=== PATIENT | male | born 1980 | race Caucasian/White ===

== ENCOUNTER 2021-03-09 13:55 | Emergency (ER) | payer OTHER, SELFPAY ==
--- NOTE | ~2021-03-09 | XR_ITS ---
EXAMINATION: XR ankle RT min 3V DATE: 03/09/2021 14:19 INDICATION: Right ankle pain post fall TECHNIQUE: Anteroposterior, oblique, mortise, and lateral views of the right ankle were obtained. COMPARISON: None. FINDINGS: Alignment is normal. No fracture. Joint spaces are well maintained. No ankle joint effusion. Mild s oft tissue swelling along about the lateral malleolus. IMPRESSION: 1. No osseous abnormality. Reviewed, dictated and finalized at location A. IMPRESSION: 1. No osseous abnormality.
[2021-03-09 13:56] VITALS: BP 119/62; PULSE 102; RESP 18; TEMP 37; O2SAT 95
--- NOTE | 2021-03-09 14:20 | ED.LOWEXIN ---
HPI - Extremity Injury (Lower) General Chief Complaint: Extremity Injury, Lower Stated Complaint: right ankle injury Time Seen by Provider: 03/09/21 14:09 Source: patient Mode of arrival: ambulatory Limitations: no limitations History of Present Illness HPI Narrative: Patient is a 41-year-old male complaining of right ankle pain, 6 out of 10, dull, aching, worse with movement after he tripped and fell, ground-level fall, and twisted his ankle last night. Denies any head, neck, back, pelvis, hip or any other extremity pain/injury. Related Data Home Medications Medication Instructions Recorded Confirmed No Home Medications 03/09/21 03/09/21 Allergies Allergy/AdvReac Type Severity Reaction Status Date / Time No Known Allergies Allergy Verified 03/09/21 14:02 Review of Systems Review of Systems: All systems reviewed & are unremarkable except as noted in HPI and below PMFSH Social History Social History Smoking status: Smoker, status unknown Smoking end date: 07/12/15 Alcohol intake: current Comments Past medical history: None Family history: None Social history: Non-smoker no EtOH or drug use Exam Const: General: no acute distress and alert Orientation/consciousness: patient oriented x3 HENMT: Head: normal to inspection Eyes: Conjunctivae: conjunctivae normal EOM: EOMs intact bilaterally Neck: Neck: normal visual inspection Resp: Effort & Inspection: normal respiratory effort Skin: General skin exam: normal color Neuro: General: moves all extremities Extrem: Other: Negative for deformity. Right ankle swelling, pain on range of motion, pain on palpation, neurovascular is intact Course Vital Signs Vital signs: Vital Signs Temperature 37.0 C 03/09/21 13:56 Pulse Rate 102 H 03/09/21 13:56 Respiratory Rate 18 03/09/21 13:56 Blood Pressure 119/62 03/09/21 13:56 Pulse Oximetry 95 03/09/21 13:56 Temperature 37.0 C 03/09/21 13:56 Pulse Rate 102 H 03/09/21 13:56 Respiratory Rate 18 03/09/21 13:56 Blood Pressure 119/62 03/09/21 13:56 Pulse Oximetry 95 03/09/21 13:56 MDM - Extremity Injury (Lower) MDM Narrative Medical decision making narrative: Ankle x-ray negative for fracture or dislocation Differential Diagnosis Differential diagnosis: Likely ankle sprain and strain and ankle fracture Discharge Plan Discharge Clinical Impression: Ankle sprain and strain Patient Disposition: Home, Self-Care Condition: Improved Instructions: Ankle Sprain (ED) Prescriptions: No Action No Home Medications RF: 0 Follow-up/Referrals: Rolly Cristina MD [Primary Care Provider] - 03/10/21 Time of Disposition: 15:00
[2021-03-09] MEDS: KETOROLAC 30 MG/ML VIAL (*BKC) IM (15:10)
[2021-03-09 15:25] VITALS: BP 122/77; PULSE 84; RESP 18; O2SAT 99
[2021-03-09 15:40] VITALS: TEMP 37
== END 2021-03-09 15:41 | disposition home or self-care (01) ==
PROVIDERS: Emergency Provider Emergency Medicine; PCP Emergency Medicine
DX: S93.401A Sprain of unspecified ligament of right ankle, initial encounter (principal); S96.911A Strain of unspecified muscle and tendon at ankle and foot level, right foot, initial encounter; W01.0XXA Fall on same level from slipping, tripping and stumbling without subsequent striking against object, initial encounter
CPT/HCPCS: 73610; 96372; 99283; J1885

== ENCOUNTER 2023-01-26 14:59 | Emergency (ER) | payer BC, SELFPAY ==
[2023-01-26 15:12] VITALS: BP 139/73; PULSE 83; RESP 16; TEMP 37; O2SAT 99
--- NOTE | 2023-01-26 15:28 | ED.URI ---
HPI - URI/Sore Throat General Chief Complaint: Upper Respiratory Infection Stated Complaint: sore throat, both eyes irritated Time Seen by Provider: 01/26/23 15:07 Source: patient Mode of arrival: ambulatory Limitations: no limitations History of Present Illness HPI Narrative: Mr. Casper is a 42-year-old male patient presenting to the clinic today with complaints of a sore throat and bilateral eye inflammation. He reports that he thinks he has pinkeye. He reports his sore throat just started on Wednesday. He also has some nasal congestion. The right eye started itching with some yellow drainage and now it has moved to the left eye. He has been instilling neomycin dexamethasone eye drops in his eyes. No known fever, chills, chest pain, or shortness of breath. Denies any known exposure to anyone with COVID, flu, or strep. MD elicited complaint: sore throat and nasal congestion Related Data Home Medications Medication Instructions Recorded Confirmed No Home Medications 03/09/21 01/26/23 Allergies Allergy/AdvReac Type Severity Reaction Status Date / Time No Known Allergies Allergy Verified 01/26/23 15:14 Review of Systems Review of Systems: Pertinent positives per HPI. Patient denies any fever, chills, rash, headache, visual changes, dizziness, cough, shortness of breath, chest pain, palpitations, nausea, vomiting, diarrhea, constipation, abdominal pain, or any urinary issues. PMFSH Social History Social History Smoking status: Smoker, status unknown Smoking end date: 07/12/15 Alcohol intake: current Comments At the time of my signature, I reviewed and agree with the nursing past medical, surgical, social, and family history. There is no relevant family history pertinent to the patient complaint. Exam Narrative: General: Well-developed, well nourished, in no apparent distress Head: Normocephalic, atraumatic Eyes: Pupils equally round and reactive to light bilaterally, EOM intact, bilateral sclera and conjunctive injected, right greater than left, dried yellow discharge noted in the eye lashes, lids normal Ears: TMs intact and clear, ear canals clear, no drainage, grossly hearing normal. Nose: Nares patent, clear nasal discharge, mild inflammation, no sinus tenderness. Mouth: Oral pharynx red without lesions or masses, good dentition, MMM. Neck: Supple, trachea midline, no enlargement of anterior or posterior cervical nodes, no thyroid masses or goiter palpable. Cardio: Regular rate and rhythm, s1 and s2 normal, no murmur appreciated. Resp: Clear to auscultation bilaterally, no rhonchi, rales, wheezing or rubs Course Course Emergency Course: Portions of this record may have been created with voice recognition software. Level of Care: Express Care Visit Vital Signs Vital signs: Vital Signs Temperature 37.0 C 01/26/23 15:12 Pulse Rate 83 01/26/23 15:12 Respiratory Rate 16 01/26/23 15:12 Blood Pressure 139/73 01/26/23 15:12 Pulse Oximetry 99 01/26/23 15:12 Oxygen Delivery Room Air 01/26/23 15:12 Temperature 37.0 C 01/26/23 15:12 Pulse Rate 83 01/26/23 15:12 Respiratory Rate 16 01/26/23 15:12 Blood Pressure 139/73 01/26/23 15:12 Pulse Oximetry 99 01/26/23 15:12 Oxygen Delivery Room Air 01/26/23 15:12 Vital signs reviewed MDM - URI/Sore Throat MDM Narrative Medical decision making narrative: At the time of visit patient is resting comfortably on the exam table. Strep screen was negative in the clinic today. I suspect the patient has viral pharyngitis, viral conjunctivitis, and URI. Supportive measures were discussed with the patient he voiced understanding discharge instructions agrees to treatment plan. We will send strep for culture. Differential Diagnosis Differential diagnosis: Likely upper respiratory infection, otitis media, sinusitis, viral infection, bronchitis, influenza
== END 2023-01-26 15:42 | disposition home or self-care (01) ==
PROVIDERS: Emergency Provider Nurse Practitioner Family; PCP Emergency Medicine
DX: J06.9 Acute upper respiratory infection, unspecified (principal); J02.9 Acute pharyngitis, unspecified; B30.9 Viral conjunctivitis, unspecified; Z87.891 Personal history of nicotine dependence
CPT/HCPCS: 87081; 87880; 99213; G0463

== ENCOUNTER 2023-11-11 00:55 | Day surgery (SDC) | payer BC, SELFPAY ==
[2023-11-01 09:37] VITALS: BMI 28.1
[2023-11-11 09:08] VITALS: BP 118/69; PULSE 87; RESP 18; TEMP 36.6; O2SAT 98
[2023-11-11] MEDS: LACTATED RINGERS 1,000 ML 150 ML IV CONT (09:19)
--- NOTE | 2023-11-11 10:03 | PM.HPGS ---
History of Present Illness History of Present Illness Consent: Risks, benefits, and alternatives have been discussed and questions answered. Patient agrees to proceed with procedure. Chief complaint: hx of other diseases of the digestive system Narrative: River Casper is a 43 year old male here for colonoscopy, had diverticulitis about 7 years ago and polyps Review of Systems Review of Systems: All systems reviewed & are unremarkable except as noted in HPI and below PMFSH Past Medical History Medical History (Updated 11/11/23 @ 10:04 by Shay Amor MD) Colon polyp Surgical History Surgical History (Updated 08/17/23 @ 14:05 by Meryl Noel MA) History of colon surgery Social History Social History (Updated 08/17/23 @ 13:58 by Meryl Noel MA) Smoking packs per day: 1 Smoking cigarettes per day: 20.0 Years smoked: 20 Smoking pack-years: 20.00 Smoking status: Former smoker Smoking end date: 07/12/15 Substance use type: does not use Do You Feel Safe in your Home?: Yes Lack of Transportation: No Lack of Food: Never True Current Housing: I Have Housing Concerned About Future Housing: No Difficulty Paying Gas/Electric Bills: No Difficulty Paying for Meds: No Currently Unemployed: No Education: Associate Degree Difficulty w/ Childcare or Family Care: No Living arrangements: other Additional living arrangements comments: with sp Spiritual care concerns: No Meds Home Medications and Allergies Home Medications Medication Instructions Recorded Confirmed Type No Home Medications 03/09/21 11/01/23 History Allergies Allergy/AdvReac Type Severity Reaction Status Date / Time No Known Allergies Allergy Verified 11/11/23 09:07 Vital Signs Vital Signs - 24 hr 11/11/23 09:08 Temperature 98 F Pulse Rate 87 Respiratory Rate 18 Blood Pressure 118/69 Pulse Oximetry 98 Oxygen Delivery Room Air Exam Const: General: comfortable and no acute distress HENMT: Face/Nose/Sinus: Normal nares present Eyes: General: appearance normal, both eyes and all related structures Neck: Neck: no JVD Resp: Auscultation: clear to auscultation bilaterally Cardio: Rate: regular rate Rhythm: regular rhythm GI: Inspection: non-distended GI Palp: Yes Soft to palpation Skin: General skin exam: normal color Neuro: General: gait normal Speech: normal speech Extrem: General: normal to inspection Psych: Mental Status: mental status grossly normal Assessment and Plan Assessment and plan (1) Colon polyp: Code(s): K63.5 - Polyp of colon Status: Acute Assessment and Plan: colonoscopy
--- NOTE | 2023-11-11 10:04 | WPDANESEPPF ---
Anes - Initial Pre Proc Eval Procedure: Operation Date: 11/11/23 10:30 Proposed Procedures p Screening Colonoscopy - Shay Amor MD Date/Time: 11/11/23 10:04 Surgeon: Shay Amor MD Pre Op Diagnosis: hx of other diseases of the digestive system Patient Data Age: 43 Gender: M Height: 1.75 m Weight: 86.8 kg Last Vital Signs Temp 98 F 11/11/23 09:08 Pulse 87 11/11/23 09:08 Resp 18 11/11/23 09:08 BP 118/69 11/11/23 09:08 Pulse Ox 98 11/11/23 09:08 O2 Del Method Room Air 11/11/23 09:08 Allergies Allergy/AdvReac Type Severity Reaction Status Date / Time No Known Allergies Allergy Verified 11/11/23 09:07 Home Medications Medication Instructions Recorded Confirmed Type No Home Medications 03/09/21 11/01/23 History Patient hx anesthesia problems: none Family hx anesthesia problems: none Results Review: All pre-operative results and documents have been reviewed as part of the pre-operative evaluation. [facility] Past Medical History Medical History (Updated 11/11/23 @ 10:04 by Shay Amor MD) Colon polyp Surgical History Surgical History (Updated 08/17/23 @ 14:05 by Meryl Noel MA) History of colon surgery Social History Social History (Updated 08/17/23 @ 13:58 by Meryl Noel MA) Smoking packs per day: 1 Smoking cigarettes per day: 20.0 Years smoked: 20 Smoking pack-years: 20.00 Smoking status: Former smoker Smoking end date: 07/12/15 Substance use type: does not use Do You Feel Safe in your Home?: Yes Lack of Transportation: No Lack of Food: Never True Current Housing: I Have Housing Concerned About Future Housing: No Difficulty Paying Gas/Electric Bills: No Difficulty Paying for Meds: No Currently Unemployed: No Education: Associate Degree Difficulty w/ Childcare or Family Care: No Living arrangements: other Additional living arrangements comments: with sp Spiritual care concerns: No Anes - Eval Final PreProcedure Day of Procedure 11/11/23 10:04 Patient weight: normal Heart: regular rate and rhythm Lungs: clear to auscultation Airway: Mallampati scale class II Neurological: alert and oriented Last oral intake: >/= 8 hours ASA classification: II Emergent: no Anesthetic plan: proceed Anesthesia type and monitoring: general GIVS and standard monitoring Results Review: All pre-operative results and documents have been reviewed as part of the pre-operative evaluation. Informed Consent: The patient's anesthetic plan and its attendant risks and benefits were discussed with the patient/family/POA. Questions were solicited and answers provided to the satisfaction of the patient/family/POA.
[2023-11-11 10:21] VITALS: BP 102/70; PULSE 84; RESP 24; O2SAT 96
[2023-11-11 10:31] VITALS: BP 93/60; PULSE 67; RESP 16; O2SAT 95
[2023-11-11 10:41] VITALS: BP 105/68; PULSE 66; RESP 24; O2SAT 95
== END 2023-11-11 10:45 | disposition home or self-care (01) ==
PROVIDERS: PCP Emergency Medicine; Visit Provider Internal Medicine Gastroenterology
PROC: 0DJD8ZZ Inspection of Lower Intestinal Tract, Via Natural or Artificial Opening Endoscopic (ICD-10-PCS; CPT 45378; principal; 2023-11-11 10:30)
DX: Z12.11 Encounter for screening for malignant neoplasm of colon (principal); K63.5 Polyp of colon; K64.8 Other hemorrhoids; K57.30 Diverticulosis of large intestine without perforation or abscess without bleeding; Z90.49 Acquired absence of other specified parts of digestive tract; Z87.891 Personal history of nicotine dependence
CPT/HCPCS: 45380; 88305; J7120

== ENCOUNTER 2025-07-11 12:50 | Emergency (ER) | payer BC, SELFPAY ==
--- NOTE | ~2025-07-11 | CT_ITS ---
EXAMINATION: CT abdomen pelvis w con DATE: 07/11/2025 15:51 INDICATION: Left lower quadrant abdominal pain TECHNIQUE: Computed tomography (CT) of the abdomen and pelvis was performed with 100 mL Omnipaque-350 intravenous contrast. Automated exposure control and iterative reconstruction technique were employed. The dose-length product was 629.17 mGy-cm. COMPARISON: 03/24/2016 FINDINGS: Lung bases are clear. Heart size is normal. No pericardial or pleural effusion. 11 mm cyst in the left hepatic lobe. Decompressed gallbladder is normal., Spleen, pancreas, bilateral adrenal glands and kidneys are normal. Postoperative change of prior appendectomy with suture line at the tip the cecum and a few adjacent surgical clips. Change of prior sigmoidectomy with anastomotic suture line along the short sigmoid colon. No bowel obstruction. Bladder is normal. Mild prostatomegaly measuring 4.3 x 3.3 cm. No free intraperitoneal gas or fluid. No pathologically enlarged abdominal or pelvic lymphadenopathy. Mild lower thoracic dextrocurvature with mild spondylosis. IMPRESSION: 1. No acute intra-abdominal/pelvic process. Reviewed, dictated and finalized at location A. [employer]
[2025-07-11 12:53] VITALS: BP 143/81; PULSE 88; RESP 20; TEMP 36.4; O2SAT 99
--- OUTSIDE RECORDS SUMMARY | 2025-07-11 12:55 | XMS_ITS | Clinical Summary ---
Author Organization [facility] Address [address] [place] [address] Care Team Providers Care Diamond Sizer Name Role Phone Rolly Cristina MD Primary Care Provide r Alyce Cantu PENSION ADVISER Unavailable Allergies No known active allergies Medications ibuprofen (ibuprofen) 200 mg tab/cap Take 2 tablet/capsu le (400 mg total) by mouth every 6 (six) hours as needed for pain 30 tablet/capsul e 1 07/03/2020 Active acetaminophen (TYLENOL) 500 mg tablet Take 1 tablet (500 mg total) by mouth every 6 (six) hours as needed for pain 60 tablet 1 07/03/2020 Active HYDROcodone-jeannette taminophen (NORCO) 5-325 mg per tabletIndicatio ns:Pain Take 1 tablet by mouth every 6 (six) hours as needed for pain 8 tablet 07/03/2020 Active ibuprofen (ADVIL,MOTRIN) 400 mg tablet Take 1 tablet (400 mg total) by mouth every 6 (six) hours as needed for pain 90 tablet 07/10/2020 Active cyclobenzaprine (FLEXERIL) 10 mg tablet Take 1 tablet (10 mg total) by mouth nightly 20 tablet 07/10/2020 Active Active Problems Problem Noted Date Diagnosed Date Closed nondisplaced fracture of phalanx of left little finger with routine healing 06/28/2020 Overview (06/28/2020): Added automatically from request for surgery [id number] Closed nondisplaced fracture of phalanx of left ring finger 06/28/2020 Overview (06/28/2020): Added automatically from request for surgery [id number] Closed nondisplaced fracture of phalanx of left middle finger 06/28/2020 Overview (06/28/2020): Added automatically from request for surgery [id number] Immunizations Immunization Administration Dates Next Due DTP 01/02/1986,04/20/1984,1981 ,1981,1981 MMR 10/08/1983 OPV 01/02/1986,04/20/1984,1981 ,1981,1981 Td, adsorbed 02/23/1996 Tdap 02/18/2017 Surgical History Surgery Date Site/Laterality Comments APPENDECTOMY COLOSTOMY CLOSURE 07/12/2015 - 07/11/2016 BOWEL RESECTION Medical History Medical History Date Comments Diverticulitis Family History Medical History Relation Name Comments No Known Problems Father No Known Problems Mother Relation Name Status Comments Father Mother Social History Tobacco Use Types Packs/Day Years Used Date Smoking Tobacco: Every Day Cigarettes 0.5 26 Started: 1999 Smokeless Tobacco: Never Alcohol Use Standard Drinks/Week Comments Yes 6 (1 standard drink = 0.6 oz pur e alcohol) WEEKENDS AUDIT-C Answer Date Recorded Q1: How often do you have a drink containing alc ohol? Monthly or less 09/09/2020 Average Number of Drinks Not on file 021 Q3: How often do you have si x or more drinks on one occasion? Less than monthly 09/09/2020 Sex and Gender Information Value Date Recorded Sex Assigned at Not on file Legal Sex Male 8:18 AM CDT Gender Identity Not on file Sexual Orientation Not on file Last Filed Vital Signs Vital Sign Reading Time Taken Comments Blood Pressure 137/90 07/03/2020 4:00 PM BUSINESS ADMINISTRATOR Pulse 83 07/03/2020 4:00 PM BUSINESS ADMINISTRATOR Temperature 36.3 C (97.3 F) 07/03/2020 3:13 PM BUSINESS ADMINISTRATOR Respiratory Rate 17 07/03/2020 4:00 PM BUSINESS ADMINISTRATOR Oxygen Saturation 92% 07/03/2020 4:00 PM BUSINESS ADMINISTRATOR Inhaled Oxygen Concentration - - Weight 72.6 kg (160 lb) 06/28/2020 11:05 AM BUSINESS ADMINISTRATOR Height 172.7 cm (5' 8) 06/28/2020 11:05 AM BUSINESS ADMINISTRATOR Body Mass Index 24.33 06/28/2020 11:05 AM BUSINESS ADMINISTRATOR Plan of Treatment Not on file Medical Devices Implanted Type Area Government Operations Consultant Device Identifier Shelf Expiration Date Model / Serial / Lot [employer] [id number] Trudy .035in 9in Trocar Wire Fixation Nonsterile - [id number] Implanted:Qty: 3 on 07/03/2020 by Pet, Jona Atkins MD at [facility] Left: Hand [employer] [id number] S / / Description:One in 5th finge r , one in ring finger and one in thumb of left hand. Insurance [employer] Care Teams Diamond Sizer Relationship Specialty Start Date End Date Rolly Cristina MD [address] [place] [address] PCP - General 06/27/20 Alyce Cantu NP [address] [place] [address] Nurse Practitioner Plastic Surgery 07/03/20
--- NOTE | 2025-07-11 15:06 | PC.NURSE ---
Pt given urinal to give urine speciment. Voices understanding to use call light when he is finished.
[2025-07-11 15:10] LABS: Hematocrit 46.1 % (42.0-52.0); Hemoglobin 15.8 g/dL (14.0-18.0); Immature Granulocyte Percent A 0.2 % (0-0.5); Immature Platelet Fraction Pct 5.5 % (0.9-11.2); Lymphocytes Absolute Auto 1.71 K/mm3 (0.9-3.2); Mean Corpuscular HGB Conc 34.3 g/dl (32-36); Mean Corpuscular Hemoglobin 30.9 pg (26-34); Mean Corpuscular Volume 90.0 fl (80-100); Nucleated Red Blood Cells Absolute Auto 0.000 K/mm3 (0.0-0.012); Nucleated Red Blood Cells Perc 0.0 % (0.0-0.2); Platelet Count Result 113 k/mm3 (150-375); Red Blood Count 5.12 M/mm3 (4.6-6.20); White Blood Count 6.6 K/mm3 (4.5-10.0)
[2025-07-11 15:20] LABS: Alanine Aminotransferase 55 U/L (6-50); Albumin Level 4.5 g/dL (3.5-5.1); Alkaline Phosphatase 84 U/L (38-126); Anion Gap 6 mmol/L (4-12); Aspartate Amino Transferase 37 U/L (17-59); Bilirubin,Total 1.3 mg/dL (0.2-1.3); Blood Urea Nitrogen 22 mg/dL (9-20); Calcium 9.3 mg/dL (8.4-10.2); Carbon Dioxide 26 mmol/L (22-30); Chloride 107 mmol/L (98-107); Estimated CRCL calculation 88 ml/min; Estimated Glomerular Filt Rate > 60; Glucose 104 mg/dL (65-110); Lipase 43 U/L (23-300); Potassium 4.2 mmol/L (3.4-5.0); Sodium 139 mmol/L (137-145); Total Protein 7.6 g/dL (6.3-8.2)
[2025-07-11 15:34] LABS: Add Urine Microscopic? NO; Appearance Urine Clear (Clear); Glucose Urine UA Negative (Negative); Leukocyte Esterase Ur Negative LEU/UL (Negative); Nitrate Urine Negative (Negative); Specific Grav Ur 1.021 (1.001-1.035)
--- NOTE | 2025-07-11 15:41 | ED_ITS ---
HPI - General Adult General Chief complaint: Abdominal Pain Stated complaint: i think my diverticulitis is flaring up Time Seen by Provider: 07/11/25 15:10 History of Present Illness HPI narrative: 45-year-old male presented to the emergency department for evaluation for lower abdominal pain. Patient does have a significant history diverticulitis with abscess perforation and partial colectomy. Patient states his symptoms 3-4 days ago. Patient states his symptoms are less severe than his prior episodes of diverticulitis but due to his history he was concerned Related Data Allergies Allergy/AdvReac Type Severity Reaction Status Date / Time No Known Allergies Allergy Verified 07/11/25 12:51 Review of Systems 2 Review of Systems: All systems reviewed & are unremarkable except as noted in HPI and below PMFSH Past Medical History Medical History Insomnia Diverticulitis of large intestine Attention deficit hyperactivity disorder Anemia Major depressive disorder, single episode, unspecified Lower abdominal pain Lipids abnormal Colostomy hernia Ravalli-enteric fistula Attention-deficit hyperactivity disorder, unspecified type Colon polyp Surgical History Surgical History History of colon surgery Social History Social History (Updated 03/20/25 @ 15:33 by Meryl Noel MA) Smoking packs per day: 1 Smoking cigarettes per day: 20.0 Years smoked: 20 Smoking pack-years: 20.00 Smoking status: Former smoker Smoking end date: 07/12/15 Alcohol intake: current Substance use: never Substance use type: does not use Lack of Transportation: No Lack of Food: Never True Current Housing: I Have Housing Concerned About Future Housing: No Difficulty Paying Gas/Electric Bills: No Difficulty Paying for Meds: No Currently Unemployed: No Education: Associate Degree Difficulty w/ Childcare or Family Care: No Living arrangements: other Additional living arrangements comments: with sp Spiritual care concerns: No Exam 2 Narrative: APPEARANCE: Well appearing, no pain, no distress, well-nourished. HEAD: normocephalic, atraumatic. EYES: PERRLA/EOMI, conjunctivae clear. NOSE: Normal no drainage NECK: Supple. No adenopathy, no masses. RESPIRATORY: Airway patent, respirations nonlabored. Clear to auscultation bilaterally, no rales, rhonchi, wheezing. CARDIOVASCULAR: Regular rate and rhythm without murmurs rubs or gallops. ABDOMINAL: Upper quadrant tenderness to palpation MUSCULOSKELETAL: Moves all extremities. Strength/ROM intact, No edema, No calf tenderness. NEURO: Alert. Cranial nerves II through XII intact. Good gait. Good coordination SKIN: Warm, dry. Normal Color Course Vital Signs Vital signs: Vital Signs Temperature 97.6 F 07/11/25 12:53 Pulse Rate 88 07/11/25 12:53 Respiratory Rate 20 07/11/25 12:53 Blood Pressure 143/81 H 07/11/25 12:53 Pulse Oximetry 99 07/11/25 12:53 Oxygen Delivery Room Air 07/11/25 12:53 Temperature 97.6 F 07/11/25 12:53 Pulse Rate 88 07/11/25 12:53 Respiratory Rate 20 07/11/25 12:53 Blood Pressure 143/81 H 07/11/25 12:53 Pulse Oximetry 99 07/11/25 12:53 Oxygen Delivery Room Air 07/11/25 12:53 [facility] Narrative Medical decision making narrative: 45-year-old male present to the emergency department for evaluation for intermittent abdominal pain. Patient did have a significant history of diverticulitis and is concerned. Patient is currently afebrile with a leukocytosis and a stable hemoglobin of 15.8. Patient has no acute abnormalities on his CMP lipase is negative. UA is negative for infection and CT scan showed no acute abdominal pelvic abnormality. Patient was updated the results of the workup. Patient was advised to take Tylenol ibuprofen for pain control and to follow a clear liquid diet for the next few days. All questions concerns were addressed patient was well appearing at time of discharge. Differential Diagnosis Differential Diagnosis: Colitis diverticulitis, appendicitis, perforation, abscess Lab Data [facility] Lab Attestation statement: I personally reviewed the patient's lab results. 07/11/25 15:02 07/11/25 15:02 Labs: Lab Results 07/11/25 07/11/25 Range/Units 15: 15:26 WBC 6.6 (4.5-10.0) K/mm3 RBC 5.12 (4.6-6.20) M/mm3 Hgb 15.8 (14.0-18.0) g/dL Hct 46.1 (42.0-52.0) % MCV 90.0 (80-100) fl MCH 30.9 (26-34) pg MCHC 34.3 (32-36) g/dl RDW 13.2 (11.5-14.5) % Plt Count 113 L (150-375) k/mm3 MPV 10.5 H (7.4-10.4) fl Immature Gran % (Auto) 0.2 (0-0.5) % Neut % (Auto) 61.1 (45.5-73.1) % Lymph % (Auto) 25.9 (18.3-44.2) % [place] % (Auto) 9.2 H (2.6-8.5) % Eos % (Auto) 2.7 (0-4.4) % Baso % (Auto) 0.9 (0.2-1.2) % Lymph # (Auto) 1.71 (0.9-3.2) K/mm3 [place] # (Auto) 0.6 (0.1-0.6) K/mm3 Eos # (Auto) 0.2 (0-0.3) K/mm3 Baso # (Auto) 0.1 (0.0-0.1) K/mm3 Abs Immat Gran (auto) 0.01 (0.00-0.031) K/mm3 Absolute Neuts (auto) 4.0 (1.3-6.7) K/mm3 Absolute Nucleated RBC 0.000 (0.0-0.012) K/mm3 Nucleated RBC % 0.0 (0.0-0.2) % % Immature Plt Fraction 5.5 (0.9-11.2) % Sodium 139 (137-145) mmol/L Potassium 4.2 (3.4-5.0) mmol/L Chloride 107 (98-107) mmol/L Carbon Dioxide 26 (22-30) mmol/L Anion Gap 6 (4-12) mmol/L BUN 22 H (9-20) mg/dL Creatinine 1.03 (0.7-1.3) mg/dL Estim Creat Clear Calc 88 ml/min Estimated GFR > 60 (59 - ) Glucose 104 (65-110) mg/dL Calcium 9.3 (8.4-10.2) mg/dL Total Bilirubin 1.3 (0.2-1.3) mg/dL AST 37 (17-59) U/L ALT 55 H (6-50) U/L Alkaline Phosphatase 84 (38-126) U/L Total Protein 7.6 (6.3-8.2) g/dL Albumin 4.5 (3.5-5.1) g/dL Lipase 43 (23-300) U/L Urine Color Yellow (Yellow) Urine Appearance Clear (Clear) Urine pH 6.5 (5.0-9.0) Ur Specific [place] 1.021 (1.001-1.035) Urine Protein Negative (Negative) mg/dL Urine Glucose (UA) Negative (Negative) mg/dL Urine Ketones Negative (Negative) mg/dL Ur Blood (Man) Negative (Negative) Urine Nitrate Negative (Negative) Urine Bilirubin Negative (Negative) Urine Urobilinogen 1.0 (<2.0) mg/dL Leukocyte Esterase Rfl Negative (Negative) CHARLEE/UL Imaging Data Radiologist's impression: ITS Impressions Abdomen/Pelvis CT 07/11/25 16:18 IMPRESSION: 1. No acute intra-abdominal/pelvic process. Discharge Plan Discharge Clinical Impression: Abdominal pain Patient Disposition: Home Condition: Stable Instructions: Antibiotic Form, Clear Liquid Diet (ED), Abdominal Pain (ED) Additional Instructions: Tylenol and ibuprofen for pain control. Follow a clear liquid diet for the next 1-3 days. Advance to a bland diet as tolerated. Have close follow-up with your primary care physician. If you have any worsening symptoms then please call or return to the emergency department. Patient Language: [place]ese Prescriptions: No Action pantoprazole [Protonix] 40 mg tablet,delayed release (DR/EC) 40 mg PO DAILY Qty: 90 2RF fluticasone propionate [Flonase Allergy Relief] 50 mcg/actuation spray,suspension 1 spray intranasal BID Qty: 48 0RF Rx Instructions: administer into each nostril rosuvastatin [Crestor] 10 mg tablet 10 mg PO DAILY Qty: 90 2RF Follow-up/Referrals: Rolly Cristina MD [Primary Care Provider, Internal Medicine]
--- OUTSIDE RECORDS SUMMARY | 2025-07-11 15:51 | XMS_ITS | Clinical Summary ---
Author Organization [facility] Address [address] [place] [address] Care Team Providers Care Inlayer Name Role Phone Rolly Cristina MD Primary Care Provide r Alyce Cantu MEDICAL LAB TECHNICIAN Unavailable Allergies No known active allergies Medications [...] (06/28/2020): Added automatically from request for surgery [id number] Closed nondisplaced fracture of phalanx of left ring finger 06/28/2020 Overview (06/28/2020): Added automatically from request for surgery [id number] Closed nondisplaced fracture of phalanx of left middle finger 06/28/2020 Overview (06/28/2020): Added automatically from request for surgery [id number] Immunizations Immunization Administration Dates Next Due DTP [...] Comments Blood Pressure 137/90 07/03/2020 4:00 PM TAXATION ACCOUNTANT Pulse 83 07/03/2020 4:00 PM TAXATION ACCOUNTANT Temperature 36.3 C (97.3 F) 07/03/2020 3:13 PM TAXATION ACCOUNTANT Respiratory Rate 17 07/03/2020 4:00 PM TAXATION ACCOUNTANT Oxygen Saturation 92% 07/03/2020 4:00 PM TAXATION ACCOUNTANT Inhaled Oxygen Concentration - - Weight 72.6 kg (160 lb) 06/28/2020 11:05 AM TAXATION ACCOUNTANT Height 172.7 cm (5' 8) 06/28/2020 11:05 AM TAXATION ACCOUNTANT Body Mass Index 24.33 06/28/2020 11:05 AM TAXATION ACCOUNTANT Plan of Treatment Not on file Medical Devices Implanted Type Area Civil Rights Representative Device Identifier Shelf Expiration Date Model / Serial / Lot [employer] [id number] Trudy .035in 9in Trocar Wire Fixation Nonsterile - [id number] Implanted:Qty: 3 on 07/03/2020 by Pet, Jona Atkins MD at [facility] Left: Hand [employer] [id number] S / / Description:One in 5th finge r , one in ring finger and one in thumb of left hand. Insurance [employer] Care Teams Inlayer Relationship Specialty Start Date End Date Rolly Cristina MD [address] [place] [address] PCP - General 06/27/20 Alyce Cantu NP [address] [place] [address] Nurse Practitioner Plastic Surgery 07/03/20
== END 2025-07-11 17:31 | disposition home or self-care (01) ==
PROVIDERS: Emergency Provider Emergency Medicine; PCP Emergency Medicine
DX: R10.30 Lower abdominal pain, unspecified (principal); Z86.0100 Personal history of colon polyps, unspecified; Z87.891 Personal history of nicotine dependence; Z90.49 Acquired absence of other specified parts of digestive tract
CPT/HCPCS: 36415; 74177; 80053; 81003; 83690; 85025; 85055; 99284; Q9967